=== PATIENT | female | born 1980 | race Two or more races ===

== ENCOUNTER 2023-01-06 12:30 | Emergency (ER) | payer SELFPAY ==
[2023-01-06 12:46] VITALS: BMI 31.0
[2023-01-06 15:34] LABS: BASO % 0.4 % (0-2.0); EOS % 0.9 % (0-4.5); HEMATOCRIT 38.2 % (32.4-45.2); HEMOGLOBIN 12.7 GM/dL (10.7-15.3); LYMPH % 41.9 % (8-40); MCH 27.8 pg (25.7-33.7); MCHC 33.2 g/dl (32.0-36.0); MEAN CELL VOLUME 83.6 fl (80-96); MEAN PLT VOLUME 7.8 fl (7.5-11.1); MONO % 10.3 % (3.8-10.2); NEUT % 46.5 % (42.8-82.8); PLATELET COUNT 396 10^3/uL (134-434); RBC 4.57 M/mm3 (3.60-5.2); RDW 13.3 % (11.6-15.6); WHITE BLOOD COUNT 6.2 K/mm3 (4.0-10.0)
[2023-01-06 15:35] LABS: URINE APPEARANCE CLEAR; URINE BILIRUBIN NEGATIVE (NEGATIVE); URINE COLOR YELLOW; URINE GLUCOSE (UA) 3+ (NEGATIVE); URINE KETONE NEGATIVE (NEGATIVE); URINE LEUK ESTERASE NEGATIVE (NEGATIVE); URINE NITRITE NEGATIVE (NEGATIVE); URINE PROTEIN NEGATIVE (NEGATIVE); URINE UROBILINOGEN 0.2 mg/dL (0.2-1.0)
[2023-01-06 15:37] LABS: VENOUS BASE EXCESS 0.1 mmol/L (-2-2); VENOUS O2 SATURATION 30.3 % (70-80); VENOUS PCO2 54.5 mmHg (38-52); VENOUS PH 7.316 (7.310-7.410)
[2023-01-06 16:01] LABS: THROAT:GRP A STREP NOT DETECTED (NOTDETECTED)
[2023-01-06] MEDS ORDERED: METOCLOPRAMIDE HCL INJECTION 10 MG/2 ML VIAL IVPUSH ONE (16:09)
[2023-01-06 16:16] LABS: POTASSIUM 5.1 mmol/L (3.5-5.1)
[2023-01-06 16:18] LABS: ALBUMIN 3.4 g/dl (3.4-5.0); BLOOD UREA NITROGEN 10.2 mg/dL (7-18); CALCIUM 8.9 mg/dL (8.5-10.1)
[2023-01-06 16:21] LABS: CREATININE 0.7 mg/dL (0.55-1.3)
[2023-01-06 16:23] LABS: BILIRUBIN,TOTAL 0.1 mg/dL (0.2-1); TOT PROT 6.8 g/dl (6.4-8.2)
[2023-01-06] MEDS ORDERED: METOCLOPRAMIDE HCL INJECTION 10 MG/2 ML VIAL ONE (16:52)
[2023-01-06 17:13] VITALS: BP 103/72; PULSE 66; RESP 16; TEMP 98
== END 2023-01-06 17:14 | disposition home or self-care (01) ==
LOC: JER 12:30
PROC: 3E033GC Introduction of Other Therapeutic Substance into Peripheral Vein, Percutaneous Approach (ICD-10-PCS; principal; 2023-01-06)
DX: R51.9 Headache, unspecified (principal); E11.65 Type 2 diabetes mellitus with hyperglycemia; R07.0 Pain in throat; Z20.822 Contact with and (suspected) exposure to COVID-19
CPT/HCPCS: 0241U-QW; 36415; 80053; 81003; 82010; 82803; 82962; 85025; 87086; 87651; 99284-25

== ENCOUNTER 2023-08-13 18:54 | Emergency (ER) | payer OTHER ==
[2023-08-13 19:27] VITALS: BMI 30.8
[2023-08-13] MEDS ORDERED: METOCLOPRAMIDE HCL INJECTION 10 MG/2 ML VIAL ONE ×2 (22:23→22:28)
[2023-08-13] MEDS ORDERED: ACETAMINOPHEN INJECTION 100 ML IVPB ONE (22:23)
[2023-08-13] MEDS: METOCLOPRAMIDE HCL INJECTION 10 MG/2 ML VIAL IVPB ONE (22:46)
[2023-08-13] MEDS: SODIUM CHLORIDE 0.9% 500 ML INFUS.BAG IV ONE (22:46)
[2023-08-13] MEDS: ACETAMINOPHEN 1000 MG/100 ML BAG IVPB ONE (22:46)
[2023-08-13 22:51] LABS: HEMATOCRIT 37.2 % (32.4-45.2); MCH 27.7 pg (25.7-33.7); MCHC 32.3 g/dl (32.0-36.0); MEAN CELL VOLUME 85.6 fl (80-96); MEAN PLT VOLUME 7.7 fl (7.5-11.1); PLATELET COUNT 424 10^3/uL (134-434); RBC 4.34 M/mm3 (3.60-5.2); RDW 13.3 % (11.6-15.6); WHITE BLOOD COUNT 11.3 K/mm3 (4.0-10.0)
[2023-08-13 23:10] LABS: POTASSIUM 4.5 mmol/L (3.5-5.1)
[2023-08-13 23:12] LABS: CALCIUM 9.2 mg/dL (8.5-10.1)
[2023-08-13 23:14] LABS: ALBUMIN 3.4 g/dl (3.4-5.0); BLOOD UREA NITROGEN 18.4 mg/dL (7-18)
[2023-08-13 23:18] LABS: BILIRUBIN,TOTAL 0.3 mg/dL (0.2-1); TOT PROT 6.8 g/dl (6.4-8.2)
[2023-08-14] MEDS ORDERED: KETOROLAC TROMETHAMINE 30 MG/1 ML VIAL ONE (00:11)
[2023-08-14] MEDS: KETOROLAC TROMETHAMINE 30 MG/1 ML VIAL IVPUSH ONE (00:27)
[2023-08-14 00:41] LABS: URINE APPEARANCE CLEAR; URINE BILIRUBIN NEGATIVE (NEGATIVE); URINE COLOR YELLOW; URINE GLUCOSE (UA) 1+ (NEGATIVE); URINE KETONE NEGATIVE (NEGATIVE); URINE LEUK ESTERASE NEGATIVE (NEGATIVE); URINE NITRITE NEGATIVE (NEGATIVE); URINE PROTEIN NEGATIVE (NEGATIVE); URINE UROBILINOGEN 0.2 mg/dL (0.2-1.0)
[2023-08-14 01:08] VITALS: BP 108/68; PULSE 74; RESP 16; TEMP 97.6
== END 2023-08-14 01:25 | disposition home or self-care (01) ==
LOC: JER 18:54
PROC: 3E033NZ Introduction of Analgesics, Hypnotics, Sedatives into Peripheral Vein, Percutaneous Approach (ICD-10-PCS; principal; 2023-08-14)
PROC: 3E0333Z Introduction of Anti-inflammatory into Peripheral Vein, Percutaneous Approach (ICD-10-PCS; 2023-08-14)
PROC: 3E033GC Introduction of Other Therapeutic Substance into Peripheral Vein, Percutaneous Approach (ICD-10-PCS; 2023-08-14)
DX: R51.9 Headache, unspecified (principal); H53.8 Other visual disturbances
CPT/HCPCS: 36415; 70450-TC; 80053; 81003; 84703; 85027; 87086; 99284-25; J0131

== ENCOUNTER 2023-10-21 20:14 | Emergency (ER) | payer OTHER ==
[2023-10-21 20:24] VITALS: BP 124/82; PULSE 94; RESP 18; TEMP 97.9; BMI 31.2
[2023-10-21] MEDS ORDERED: IBUPROFEN 600 MG TABLET (FP) PO ONE (21:51)
[2023-10-21] MEDS: IBUPROFEN 600 MG TABLET (FP) PO ONE (21:52)
== END 2023-10-21 22:01 | disposition home or self-care (01) ==
LOC: JERFT 20:14
DX: R07.89 Other chest pain (principal)
CPT/HCPCS: 99283-25

== ENCOUNTER 2024-01-29 03:28 | Emergency (ER) | payer OTHER ==
[2024-01-29 03:40] VITALS: BMI 31.8
[2024-01-29] MEDS ORDERED: LIDOCAINE VISCOUS 2% ORAL/TOP 15 ML UNIT-DOSE CUP ONE (04:05)
[2024-01-29] MEDS: LIDOCAINE VISCOUS 2% ORAL/TOP 15 ML UNIT-DOSE CUP MM ONE (04:07)
[2024-01-29 04:44] LABS: BASO % 0.6 % (0-2.0); EOS % 0.7 % (0-4.5); HEMATOCRIT 38.5 % (32.4-45.2); HEMOGLOBIN 12.7 GM/dL (10.7-15.3); LYMPH % 30.4 % (8-40); MEAN CELL VOLUME 84.8 fl (80-96); MONO % 7.4 % (3.8-10.2); NEUT % 60.9 % (42.8-82.8); PLATELET COUNT 541 10^3/uL (134-434); RBC 4.54 M/mm3 (3.60-5.2); RDW 13.5 % (11.6-15.6)
[2024-01-29 04:45] LABS: THROAT:GRP A STREP NOT DETECTED (NOTDETECTED)
[2024-01-29 04:59] LABS: POTASSIUM 4.5 mmol/L (3.5-5.1)
[2024-01-29 05:01] LABS: CALCIUM 9.6 mg/dL (8.5-10.1)
[2024-01-29 05:02] LABS: ALBUMIN 3.8 g/dl (3.4-5.0); BLOOD UREA NITROGEN 10.2 mg/dL (7-18)
[2024-01-29 05:05] LABS: CREATININE 0.8 mg/dL (0.55-1.3)
[2024-01-29 05:07] LABS: BILIRUBIN,TOTAL 0.3 mg/dL (0.2-1); TOT PROT 7.8 g/dl (6.4-8.2)
[2024-01-29] MEDS ORDERED: DEXAMETHASONE SOD PHOSPHATE 10 MG/1 ML VIAL ONE (09:04)
[2024-01-29] MEDS: DEXAMETHASONE SOD PHOSPHATE 10 MG/1 ML VIAL IVPUSH ONE (09:21)
[2024-01-29 09:23] VITALS: BP 112/67; PULSE 94; RESP 16; TEMP 98.3
== END 2024-01-29 09:23 | disposition home or self-care (01) ==
LOC: JER 03:28
PROC: 3E033GC Introduction of Other Therapeutic Substance into Peripheral Vein, Percutaneous Approach (ICD-10-PCS; principal; 2024-01-29)
DX: R07.0 Pain in throat (principal); R13.10 Dysphagia, unspecified; Z20.822 Contact with and (suspected) exposure to COVID-19
CPT/HCPCS: 0241U-QW; 36415; 70491-TC; 80053; 84703; 85025; 87651; 99284-25; J1100; Q9967

== ENCOUNTER 2025-02-14 10:47 | Emergency (ER) | payer OTHER ==
[2025-02-14 11:09] VITALS: BP 107/69; PULSE 80; RESP 18; TEMP 98; BMI 29.2
[2025-02-14] MEDS ORDERED: ACETAMINOPHEN INJECTION 100 ML ONE (11:43)
[2025-02-14] MEDS ORDERED: KETOROLAC TROMETHAMINE 30 MG/1 ML VIAL ONE (11:43)
[2025-02-14] MEDS: KETOROLAC TROMETHAMINE 30 MG/1 ML VIAL IVPUSH ONE (12:00)
[2025-02-14] MEDS: SODIUM CHLORIDE 0.9% 500 ML INFUS.BAG IV ONE (12:06)
[2025-02-14] MEDS: ACETAMINOPHEN 1000 MG/100 ML BAG IVPB ONE (12:06)
[2025-02-14 12:29] LABS: ABSOLUTE IMMATURE GRANULOCYTES 0.02 x10^3/uL (0.0-0.031); BASOPHILS # 0.03 x10^3/uL (0.01-0.08); EOSINOPHIL % 1.3 % (0.7-5.8); EOSINOPHILS # 0.11 x10^3/uL (0.04-0.36); MCHC 32.2 g/dl (32.2-35.5); MEAN CELL VOLUME 85.1 fl (79.4-94.8); MEAN PLT VOLUME 9.6 fl (9.4-12.3); MONOCYTE # 0.86 x10^3/uL (0.24-0.86); MONOCYTE % 10.4 % (4.7-12.5); RDW 13.3 % (12.2-17.1)
[2025-02-14 12:59] LABS: GLUCOSE,RANDOM 123.0 mg/dL (74-106); TOT PROT 7.6 g/dl (6.4-8.2)
[2025-02-14 13:00] LABS: CO2 24.0 mmol/L (21-32)
[2025-02-14 13:01] LABS: ALK PHOS 53.0 U/L (40-150)
[2025-02-14 13:04] LABS: CREATININE 0.67 mg/dL (0.55-1.3); SGOT/AST 20.0 U/L (5-34); SGPT/ALT 19.0 U/L (0-55)
== END 2025-02-14 13:52 | disposition home or self-care (01) ==
LOC: JER 10:47
PROC: 3E033NZ Introduction of Analgesics, Hypnotics, Sedatives into Peripheral Vein, Percutaneous Approach (ICD-10-PCS; principal; 2025-02-14)
PROC: 3E0333Z Introduction of Anti-inflammatory into Peripheral Vein, Percutaneous Approach (ICD-10-PCS; 2025-02-14)
DX: G43.909 Migraine, unspecified, not intractable, without status migrainosus (principal)
CPT/HCPCS: 36415; 80053; 85025; 96374; 96375; 99284-25